=== PATIENT | female | born 1985 | race Hispanic/Latino ===

== ENCOUNTER 2020-12-22 10:27 | Emergency (ER) | payer BC ==
[~2020-12-22] VITALS: Ht 170.2 cm; Wt 90.7 kg
== END 2020-12-22 12:59 | disposition home or self-care (01) ==
LOC: ER 10:30
DX: U07.1 COVID-19 (principal); J30.2 Other seasonal allergic rhinitis
CPT/HCPCS: 99283

== ENCOUNTER 2024-03-25 23:10 | Emergency (ER) | payer BC, OTHER ==
[~2024-03-25] VITALS: Ht 160 cm; Wt 79.4 kg
[2024-03-25 23:14] VITALS: TEMP 98.9
[2024-03-25] MEDS: HYDROXYZINE HCL 25 MG TAB PO ONE (23:50)
[2024-03-26 00:22] LABS: BASOPHILS # (AUTO) 0.1 (0.0-0.1); BASOPHILS % 0.5 % (0.0-1.0); EOSINOPHILS # (AUTO) 0.2 (0.0-0.4); EOSINOPHILS % 2.1 % (0.0-6.0); HEMATOCRIT 41.9 % (34.2-44.1); HEMOGLOBIN 13.8 g/dL (12.0-16.0); LYMPHOCYTES # (AUTO) 4.2 (1.0-3.2); MEAN CORPUSCULAR HEMOGLOBIN 29.6 pg (28-32); MEAN CORPUSCULAR HGB CONC 32.9 g/dL (31-35); MEAN CORPUSCULAR VOLUME 89.9 fL (81-99); MONOCYTES # (AUTO) 0.7 (0.2-0.8); MONOCYTES % 5.6 % (4.4-11.3); NEUTROPHILS # (AUTO) 6.4 (2.1-6.9); NEUTROPHILS % 55.6 % (38.7-80.0); PLATELET COUNT 360 x10e3/uL (140-360); RED BLOOD COUNT 4.66 x10e6/uL (3.6-5.1); RED CELL DISTRIBUTION WIDTH 12.1 % (11.7-14.4); WHITE BLOOD COUNT 11.57 x10e3/uL (4.8-10.8)
[2024-03-26 00:44] LABS: ALBUMIN 4.2 g/dL (3.5-5.0); ALBUMIN/GLOBULIN RATIO 1.1 (0.8-2.0); ANION GAP 15.9 mmol/L (8-16); BILIRUBIN,TOTAL 0.2 mg/dL (0.2-1.2); CALCIUM 9.4 mg/dL (8.4-10.2); CREATININE, SERUM 0.78 mg/dL (0.57-1.11); TOTAL PROTEIN 8.1 g/dL (6.5-8.1)
[2024-03-26 00:58] LABS: POTASSIUM 2.9 mmol/L (3.5-5.1)
[2024-03-26 01:05] LABS: FREE THYROXINE INDEX 2.7073 (1.4-3.8); T3 UPTAKE 24.59 % (22.5-37.0); THYROID STIMULATING HORMONE 1.281 uIU/mL (0.350-4.940)
[2024-03-26 01:07] LABS: T4 (THYROXINE) 11.01 ug/dL (4.5-10.9)
[2024-03-26 01:17] VITALS: O2SAT 98
[2024-03-26] MEDS: POTASSIUM CHLORIDE 20 MEQ TAB CR PO STA (01:18)
== END 2024-03-26 01:28 | disposition home or self-care (01) ==
LOC: ER 23:15
DX: R00.2 Palpitations (principal); E87.6 Hypokalemia; E03.9 Hypothyroidism, unspecified; R94.31 Abnormal electrocardiogram [ECG] [EKG]
CPT/HCPCS: 36415; 71045; 80053; 84436; 84443; 84479; 84484; 85025; 93005; 99284; J3410

== ENCOUNTER 2024-10-19 13:48 | Emergency (ER) | payer BC, OTHER ==
[~2024-10-19] VITALS: Ht 160 cm; Wt 68.0 kg
[2024-10-19 14:15] VITALS: PULSE 86; RESP 14; TEMP 98.8
[2024-10-19 14:49] LABS: BASOPHILS % 0.5 % (0.0-1.0); EOSINOPHILS % 1.8 % (0.0-6.0); LYMPHOCYTES % 16.4 % (18.0-39.1); MONOCYTES % 8.5 % (4.4-11.3); NEUTROPHILS % 72.5 % (38.7-80.0); RED CELL DISTRIBUTION WIDTH 14.8 % (11.7-14.4)
[2024-10-19 14:55] LABS: LEUKOCYTE ESTERASE ,URINE NEGATIVE (NEGATIVE); PROTEIN,URINE DIPSTICK NEGATIVE (NEGATIVE)
[2024-10-19 14:56] LABS: URINE UROBILINOGEN 0.2 mg/dL (0.2 - 1)
[2024-10-19 15:07] LABS: EPITHELIAL CELLS,URINE RARE /LPF; WBC,URINE (MAN) 0-5 /HPF (0-5)
[2024-10-19 15:12] LABS: EST GLOMERULAR FILTRATION RATE 93.0 ML/MIN (>=60)
[2024-10-19 17:17] VITALS: BP 116/80; PULSE 74; RESP 16; TEMP 98.3; O2SAT 98
== END 2024-10-19 17:22 | disposition home or self-care (01) ==
LOC: ER 14:27
DX: N93.8 Other specified abnormal uterine and vaginal bleeding (principal); R10.30 Lower abdominal pain, unspecified; E03.9 Hypothyroidism, unspecified
CPT/HCPCS: 36415; 80053; 81001; 84702; 85025; 99283